=== PATIENT | female | born 1950 | race African-American/Black ===

== ENCOUNTER 2022-11-23 09:51 | Emergency (ER) | payer MEDICAID ==
[~2022-11-23] VITALS: Ht 162.6 cm; Wt 77.0 kg
[2022-11-23 09:58] VITALS: O2SAT 100
[2022-11-23 13:38] LABS: BASOPHILS % 0.8 % (0.0-2.0); EOSINOPHILS % 2.3 % (0.0-5.0); HEMOGLOBIN. 8.8 g/dL (12.0-16.0); LYMPHOCYTES % 33.4 % (20.0-50.0); MEAN CORPUSCULAR VOLUME 86.1 fL (81.0-99.0); MEAN PLATELET VOLUME 7.3 fl (7.4-10.4); MONOCYTES % 8.3 % (2.0-8.0); NEUTROPHILS % 55.2 % (40.0-76.0); PLATELET 322 x1000/uL (130-400); RED BLOOD CELL COUNT 3.26 mill/uL (4.2-5.4)
[2022-11-23 13:45] LABS: CHLORIDE 107 mEq/L (98-107)
[2022-11-23] MEDS ORDERED: METOPROLOL TARTRATE 25MG TABLET PO NR (19:30)
[2022-11-23] MEDS ORDERED: LABETALOL 5MG/ML SYR 20 MG/4 ML SYRINGE IV NR (19:30)
[2022-11-23] MEDS ORDERED: IOHEXOL-350 100 ML BOTTLE ONE (20:45)
[2022-11-23 21:00] VITALS: BP 111/64; PULSE 76; RESP 17; TEMP 98.2
== END 2022-11-23 21:05 | disposition left against medical advice (07) ==
LOC: ER 09:51
DX: I72.3 Aneurysm of iliac artery (principal); N81.4 Uterovaginal prolapse, unspecified; D64.9 Anemia, unspecified; I16.0 Hypertensive urgency
CPT/HCPCS: 80053; 85025; 36415; 74174; 74177; 99284; 86304; Q9967; J3490; Z7610 ×2